=== PATIENT | male | born 1985 | race Caucasian/White ===

== ENCOUNTER 2018-07-14 06:01 | Emergency (ER) | payer OTHER ==
[2018-07-14 06:15] VITALS: BP 147/101
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
== END 2018-07-14 06:35 | disposition home or self-care (01) ==
DX: S89.92XA Unspecified injury of left lower leg, initial encounter (principal); X50.9XXA Other and unspecified overexertion or strenuous movements or postures, initial encounter; Y99.0 Civilian activity done for income or pay

== ENCOUNTER 2018-07-29 13:19 | Emergency (ER) | payer OTHER ==
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
[2018-07-29] MEDS ORDERED: IOPAMIDOL (ISOVUE-370) 150 ML BTL IV ONE (15:19)
[2018-07-29 16:55] VITALS: BP 134/68
== END 2018-07-29 16:52 | disposition home or self-care (01) ==
LOC: CED 13:19
DX: R23.1 Pallor (principal); R20.2 Paresthesia of skin; M79.605 Pain in left leg
CPT/HCPCS: 75635-PO; 93971-PO; 99285-ER; Q9967